=== PATIENT | female | born 1960 | race American Indian/Alaskan Native ===

== ENCOUNTER 2016-11-14 00:13 | Emergency (ER) | payer BC ==
[2016-11-14 01:33] LABS: Basophils % (Auto) 0.4 % (0.0-1.8); Eosinophils % (Auto) 1.9 % (0.0-4.3); Hemoglobin 12.5 gm/dl (10.1-14.3); Mean Corpuscular HGB Conc 33 % (30-34); Mean Corpuscular Hemoglobin 29 pg (28-32); Mean Corpuscular Volume 88 fl (79-97); Platelet Count 305 K/mm3 (140-440); Red Blood Count 4.32 M/mm3 (3.65-5.03); Red Cell Distribution Width 13.5 % (13.2-15.2); White Blood Count 4.7 K/mm3 (4.5-11.0)
[2016-11-14 01:40] LABS: Anion Gap 17 mmol/L; BUN/Creatinine Ratio 22.85; Blood Urea Nitrogen 16 mg/dL (7-17); Calcium 9.5 mg/dL (8.4-10.2); Carbon Dioxide 27 mmol/L (22-30); Chloride 102.2 mmol/L (98-107); Glucose 93 mg/dL (65-100); Potassium 3.5 mmol/L (3.6-5.0); Sodium 143 mmol/L (137-145)
[2016-11-14 02:23] LABS: Bilirubin,Urine NEG (Negative)
[2016-11-14 02:24] LABS: Blood,Urine NEG (Negative); Ketones,Urine NEG (Negative); Leukocyte Esterase,Urine NEG (Negative); Mucus,Urine FEW /HPF; Nitrite,Urine NEG (Negative); Protein,Urine <15 mg/dL mg/dL (Negative); Urobilinogen,Urine < 2.0 mg/dL (<2.0)
--- NOTE | 2016-11-14 06:43 | Emergency Department Report ---
ED General Adult HPI - General Chief complaint: Headache Stated complaint: HEADACHE/DIZZINESS Time Seen by Provider: 11/14/16 06:40 Source: patient Mode of arrival: Ambulatory Limitations: No Limitations - History of Present Illness Initial comments: The patient states that she's had a headache for the past 4-5 days intermittently. She states sometimes she feels dizzy. She has been monitoring her blood pressure and it was about 150/95 prior to arrival. She began become concerned and felt a little dizzy but did not have vertigo. She denies any focal weakness or numbness. She denies any difficulty with her coordination or gait. She's had no nausea or vomiting. She states that she's had headaches before but never had a CAT scan examination of her brain. She's been told that she had "vertigo" in the past. He denies fever or chills. -: Gradual, days(s) Location: head (anterior bilateral) Radiation: non-radiation Severity scale (0 -10): 3 Quality: aching Consistency: intermittent Improves with: none Worsens with: none Associated Symptoms: denies other symptoms Treatments Prior to Arrival: none - Related Data Home Medications Medication Instructions Recorded Confirmed Last Taken Losartan/Hydrochlorothiazide 02/28/14 02/28/14 02/27/14 [Hyzaar 100-25 TAB] Pravastatin (Nf) [Pravachol] 80 mg PO QHS 02/28/14 02/28/14 02/27/14 amLODIPine [Norvasc] 10 mg PO DAILY 02/28/14 02/28/14 02/27/14 Previous Rx's Medication Instructions Recorded Last Taken Type Butalb/Acetamin/Caff 50-325-40 1 tab PO Q6HR PRN #10 tab 11/14/16 Unknown Rx [Fioricet] Allergies Allergy/AdvReac Type Severity Reaction Status Date / Time No Known Allergies Allergy Unverified 02/28/14 17:51 ED Review of Systems ROS: Stated complaint: HEADACHE/DIZZINESS Other details as noted in HPI Constitutional: denies: chills, fever Eyes: denies: eye pain, eye discharge, vision change ENT: other (dizziness no vertigo). denies: ear pain, throat pain Respiratory: denies: cough, shortness of breath, wheezing Cardiovascular: denies: chest pain, palpitations Endocrine: no symptoms reported Gastrointestinal: denies: abdominal pain, nausea, diarrhea Genitourinary: denies: urgency, dysuria, discharge Musculoskeletal: denies: back pain, joint swelling, arthralgia Skin: denies: rash, lesions Neurological: denies: headache, weakness, numbness, paresthesias, confusion, abnormal gait, vertigo Psychiatric: denies: anxiety, depression Hematological/Lymphatic: denies: easy bleeding, easy bruising ED Past Medical Hx - Past Medical History Previous Medical History?: Yes Hx Hypertension: Yes Additional medical history: High cholesterol, hx. of bladder infections - Surgical History Past Surgical History?: Yes Hx Appendectomy: Yes - Social History Smoking Status: Never Smoker Substance Use Type: None - Medications Home Medications: Home Medications Medication Instructions Recorded Confirmed Last Taken Type Losartan/Hydrochlorothiazide 02/28/14 02/28/14 02/27/14 History [Hyzaar 100-25 TAB] Pravastatin (Nf) [Pravachol] 80 mg PO QHS 02/28/14 02/28/14 02/27/14 History amLODIPine [Norvasc] 10 mg PO DAILY 02/28/14 02/28/14 02/27/14 History Butalb/Acetamin/Caff 50-325-40 1 tab PO Q6HR PRN #10 tab 11/14/16 Unknown Rx [Fioricet] ED Physical Exam - General Limitations: No Limitations General appearance: alert, in no apparent distress - Head Head exam: Present: atraumatic, normocephalic, normal inspection - Eye Eye exam: Present: normal appearance, PERRL, EOMI. Absent: scleral icterus - ENT ENT exam: Present: normal exam, mucous membranes moist - Neck Neck exam: Present: normal inspection. Absent: tenderness, meningismus - Respiratory Respiratory exam: Present: normal lung sounds bilaterally. Absent: respiratory distress - Cardiovascular Cardiovascular Exam: Present: regular rate, normal rhythm. Absent: systolic murmur, diastolic murmur, rubs, gallop - GI/Abdominal GI/Abdominal exam: Present: soft, normal bowel sounds. Absent: distended, tenderness, guarding, rebound, rigid - Extremities Exam Extremities exam: Present: normal inspection - Back Exam Back exam: Present: normal inspection - Neurological Exam Neurological exam: Present: alert, oriented X3, CN II-XII intact, normal gait. Absent: motor sensory deficit - Psychiatric Psychiatric exam: Present: normal affect, normal mood - Skin Skin exam: Present: warm, dry, intact, normal color. Absent: rash ED Course Vital Signs 11/14/16 11/14/16 11/14/16 00:19 05:43 06:02 Temperature 97.2 F L 98.3 F Pulse Rate 86 78 Respiratory 20 Rate Blood Pressure 144/95 138/73 Blood Pressure 149/94 [Right] O2 Sat by Pulse 100 100 Oximetry 11/14/16 11/14/16 11/14/16 06:10 06:20 06:30 Temperature Pulse Rate 71 80 81 Respiratory 13 14 15 Rate Blood Pressure 138/73 138/73 136/79 Blood Pressure [Right] O2 Sat by Pulse 100 100 99 Oximetry 11/14/16 11/14/16 11/14/16 06:40 06:50 07:00 Temperature Pulse Rate 81 82 73 Respiratory 16 12 13 Rate Blood Pressure 136/79 136/79 142/81 Blood Pressure [Right] O2 Sat by Pulse 100 99 98 Oximetry 11/14/16 11/14/16 11/14/16 07:10 07:20 07:30 Temperature Pulse Rate 79 78 77 Respiratory 16 12 12 Rate Blood Pressure 142/81 142/81 138/76 Blood Pressure [Right] O2 Sat by Pulse 100 99 100 Oximetry 11/14/16 07:40 Temperature Pulse Rate 79 Respiratory 14 Rate Blood Pressure 142/81 Blood Pressure [Right] O2 Sat by Pulse 100 Oximetry - Reevaluation(s) Reevaluation #1: Patient resting in no distress. She is appropriate for outpatient follow-up. If she needs something for her headache now we will supply. Her evaluation was essentially normal. 11/14/16 09:00 ED Medical Decision Making - Lab Data Result diagrams: 11/14/16 00:51 11/14/16 00:51 Laboratory Results - last 24 hr 11/14/16 11/14/16 11/14/16 00:51 00:51 Unknown WBC 4.7 RBC 4.32 Hgb 12.5 Hct 38.0 MCV 88 MCH 29 MCHC 33 RDW 13.5 Plt Count 305 Lymph % (Auto) 30.9 [place] % (Auto) 7.6 H Eos % (Auto) 1.9 Baso % (Auto) 0.4 Lymph # 1.5 [place] # 0.4 Eos # 0.1 Baso # 0.0 Seg Neutrophils % 59.2 Seg Neutrophils # 2.8 Sodium 143 Potassium 3.5 L Chloride 102.2 Carbon Dioxide 27 Anion Gap 17 BUN 16 Creatinine 0.7 Estimated GFR > 60 BUN/Creatinine Ratio 22.85 Glucose 93 Calcium 9.5 Urine Color Yellow Urine Turbidity Clear Urine pH 6.0 Ur Specific [place] 1.017 Urine Protein <15 mg/dl Urine Glucose (UA) Neg Urine Ketones Neg Urine Blood Neg Urine Nitrite Neg Urine Bilirubin Neg Urine Urobilinogen < 2.0 Ur Leukocyte Esterase Neg Urine WBC (Auto) 2.0 Urine RBC (Auto) 1.0 U Epithel Cells (Auto) 3.0 Urine Mucus Few - EKG Data -: EKG Interpreted by Me EKG shows normal: sinus rhythm, axis, intervals, QRS complexes, ST-T waves Rate: normal - EKG Data When compared to previous EKG there are: no significant change Interpretation: no acute changes - Radiology Data Radiology results: report reviewed interpreted by me: CT NAF Critical care attestation.: If time is entered above; I have spent that time in minutes in the direct care of this critically ill patient, excluding procedure time. ED Disposition Clinical Impression: Cephalalgia Qualifiers: Headache type: unspecified Headache chronicity pattern: acute headache Intractability: not intractable Qualified Code(s): R51 - Headache Hypertension Qualifiers: Hypertension type: essential hypertension Qualified Code(s): I10 - Essential ( primary) hypertension Disposition: DISCHARGED TO HOME OR SELFCARE Is pt being admited?: No Does the pt Need Aspirin: No Condition: Stable Instructions: Hypertension (ED), Acute Headache (ED) Additional Instructions: Follow up with primary care physician. Return any acute change or problem. Prescriptions: Butalb/Acetamin/Caff 50-325-40 [Fioricet] 1 tab PO Q6HR PRN #10 tab PRN Reason: Headache Referrals: JERRI MULLIGAN MD [Primary Care Provider] - 3-5 Days Time of Disposition: 09:08
[2016-11-14 08:21] VITALS: BP 142/81
--- NOTE | 2016-11-14 08:46 | Cat Scan Report ---
CT scan of head without contrast: History: Headache. Findings: Ventricles are normal in size and midline in location. No evidence of acute ischemia, hemorrhage or mass. No extra axial fluid collection. Normal brainstem and cerebellum. Normal sinuses and mastoid air cells. Impression: No acute intracranial abnormality.
[2016-11-14] MEDS ORDERED: ULTRAM PO ONE (09:12)
== END 2016-11-14 10:02 | disposition home or self-care (01) ==
LOC: ED 00:13
DX: I10 Essential (primary) hypertension (principal); R51 Headache; E78.00 Pure hypercholesterolemia, unspecified
CPT/HCPCS: 36415; 70450; 80048; 81001; 85025; 93005; 93010